=== PATIENT | male | born 1945 ===

== ENCOUNTER 2017-01-03 22:20 | Emergency (ER) | payer MEDICARE, BC ==
--- NOTE | 2017-01-03 22:24 | PHYS DOC ---
Adult General Chief Complaint Chief Complaint: DIZZY/LIGHT HEADED HPI HPI Patient is a 71 year old male who presents with left arm weakness and dizziness. He states this started at around 9:30 tonight when he stated from the mere he always son became very dizzy like the room was spinning around and around. He states he closes his eyes and makes it feel better. He also states his left arm is weaker than normal. He thinks it started at the same time but it was deathly after dinner tonight. He states he's had a history of 2 previous strokes and has weakness of his left arm from the previous stroke. He also feels heaviness behind his eyes extensively on his chest. He denies any chest pain or abdominal pain or shortness of breath. Denies fevers chills nausea vomiting. Review of Systems Review of Systems Constitutional: Denies fever or chills [] Eyes: Denies change in visual acuity, redness, or eye pain [] HENT: Denies nasal congestion or sore throat [] Respiratory: Denies cough or shortness of breath [] Cardiovascular: No additional information not addressed in HPI [] GI: Denies abdominal pain, nausea, vomiting, bloody stools or diarrhea [] : Denies dysuria or hematuria [] Musculoskeletal: Denies back pain or joint pain [] Integument: Denies rash or skin lesions [] Neurologic: Denies headache, positive for left arm left leg weakness Endocrine: Denies polyuria or polydipsia [] Current Medications Current Medications Current Medications Medications (Trade) Dose Ordered Sig/Delfina Start Time Stop Time Status Last Admin Dose Admin Alteplase, Recombinant 81 ml @ 81 mls/hr Q1H 01/04/17 00:30 01/04/17 01:30 DC 01/04/17 00:11 81 MLS/HR Info (Do NOT chart on this entry -- for MONITORING) 1 each PRN DAILY PRN 01/03/17 23:45 01/05/17 23:44 Iohexol (Omnipaque 350 Mg/ml) 75 ml 1X ONCE 01/04/17 00:00 01/04/17 00:01 DC 01/03/17 23:40 75 ML Labetalol HCl (Normodyne) 10 mg PRN Q10MIN PRN 01/03/17 23:45 01/04/17 00:24 DC Nicardipine HCl 50 mg/Sodium Chloride 270 ml @ 27 mls/hr CONT PRN PRN 01/03/17 23:45 Sodium Chloride 50 ml @ 0 mls/hr 1X ONCE 01/04/17 01:30 01/04/17 01:31 DC 01/04/17 01:07 0 MLS/HR Allergies Allergies Allergies Coded Allergies Type Severity Reaction Last Updated Verified Nsqzkty-Iil-Bjm Reductase Inhibitor Allergy Intermediate 01/04/17 Yes atenolol Allergy Intermediate 01/04/17 Yes clopidogrel Allergy Intermediate 01/04/17 Yes Physical Exam Physical Exam Constitutional: Well developed, well nourished, no acute distress, non-toxic appearance. [] HENT: Normocephalic, atraumatic, bilateral external ears normal, oropharynx moist, no oral exudates, nose normal. Eyes: no discharge. Refuses to open eyes[] Neck: Normal range of motion, no tenderness, supple, no stridor. [] Cardiovascular:Heart rate regular rhythm, no murmur [] Lungs & Thorax: Bilateral breath sounds clear to auscultation [] Abdomen: Bowel sounds normal, soft, no tenderness, no masses, no pulsatile masses. [] Skin: Warm, dry, no erythema, no rash. [] Back: No tenderness, no CVA tenderness. [] Extremities: No tenderness, no cyanosis, no clubbing, ROM intact, no edema. [] Neurologic: Alert and oriented X 3, 1 out of 5 strength in the left lower show many, 3 out of 5 in the left upper extremities, normal sensory function, Psychologic: Affect normal, judgement normal, mood normal. [] Current Patient Data Vital Signs Vital Signs Date Time Temp Pulse Resp B/P (MAP) Pulse Ox O2 Delivery O2 Flow Rate FiO2 01/04/17 01:55 74 18 117/59 (78) 99 Nasal Cannula 2.0 01/03/17 23:00 98.2 98.2 Lab Values Laboratory Tests Test 01/03/17 22:43 01/03/17 22:56 01/03/17 23:18 01/03/17 23:37 O2 Saturation 91 % (92-99) L Arterial Blood pH 7.40 (7.35-7.45) Arterial Blood pCO2 at Patient Temp 47 mmHg (35-46) H Arterial Blood pO2 at Patient Temp 64 mmHg (65-108) L Arterial Blood HCO3 29 mmol/L (21-28) H Arterial Blood Base Excess 3 mmol/L (-3-3) Oxyhemoglobin 90.4 % Methemoglobin 0.2 % (0.0-1.9) Carbon Monoxide, Quantitative 0.4 % (0.0-1.9) FiO2 21.0 POC Hemoglobin 11.2 g/dL (14-18) L POC Hematocrit 33 % (37-52) L POC Sodium 144 mmol/L (135-145) POC Potassium 3.6 mmol/L (3.5-5.0) POC Chloride 102 mmol/L (98-110) POC Total CO2 31 mmol/L (23-32) Anion Gap 16 mmol/L (6-14) H 4 (6-14) L POC Blood Urea Nitrogen 19 mg/dL (8-26) POC Creatinine 0.9 mg/dL (0.5-1.4) Glucose Level 99 mg/dL (70-99) 104 mg/dL (70-99) H POC Ionized Calcium (Laila) 1.24 mmol/L (1.13-1.32) White Blood Count 6.7 x10^3/uL (4.0-11.0) Red Blood Count 3.99 x10^6/uL (4.30-5.70) L Hemoglobin 10.3 g/dL (13.0-17.5) L Hematocrit 32.1 % (39.0-53.0) L Mean Corpuscular Volume 80 fL (79-100) Mean Corpuscular Hemoglobin 26 pg (25-35) Mean Corpuscular Hemoglobin Concent 32 g/dL (31-37) Red Cell Distribution Width 18.1 % (11.5-14.5) H Platelet Count 113 x10^3/uL (140-400) L Prothrombin Time 14.8 SEC (11.7-14.0) H Prothrombin Time INR 1.2 (0.8-1.1) H PTT 29 SEC (24-38) Sodium Level 145 mmol/L (136-145) Potassium Level 3.6 mmol/L (3.5-5.1) Chloride Level 107 mmol/L (98-107) Carbon Dioxide Level 34 mmol/L (21-32) H Blood Urea Nitrogen 19 mg/dL (8-26) Creatinine 0.8 mg/dL (0.7-1.3) Estimated GFR (Cockcroft-Gault) 95.6 Calcium Level 8.6 mg/dL (8.5-10.1) Ammonia 27 mcmol/L (11-34) Troponin I Quantitative 0.042 ng/mL (0.000-0.055) Glucose (Fingerstick) 99 mg/dL (70-99) Test 01/03/17 23:55 Stool Occult Blood Negative (NEG) Urine Opiates Screen Pos (NEG) Urine Methadone Screen Neg (NEG) Urine Barbiturates Neg (NEG) Urine Phencyclidine Screen Neg (NEG) Urine Amphetamine/Methamphetamine Neg (NEG) Urine Benzodiazepines Screen Neg (NEG) Urine Cocaine Screen Neg (NEG) Urine Cannabinoids Screen Pos (NEG) Urine Ethyl Alcohol Neg (NEG) Laboratory Tests 01/03/17 23:18 Laboratory Tests 01/03/17 22:56 01/03/17 23:18 EKG EKG EKG shows a rate of 81 bpm that appears to be sinus, no ST elevations appreciated, artifact in 1 and aVL, V2, right axis deviation noted, right bundle branch morphology noted, QTC 481 ms, as interpreted by me. Radiology/Procedures Radiology/Procedures [facility] [address] [place] [address] IMAGING REPORT Signed PATIENT: HILDA HAJI ACCOUNT: [id number] : 1945 LOCATION: ER AGE: 71 SEX: M EXAM STATUS: REG ER ORD. PHYSICIAN: NU ANTONIO MD REASON: code stroke PROCEDURE: CT HEAD WO CONTRAST CT head without contrast 01/03/2017 CLINICAL INDICATION: Stroke, left arm weakness. COMPARISON: None. TECHNIQUE: Multiple CT images of the head were obtained without contrast according to standard protocol. *One or more of the following individualized dose reduction techniques were utilized for this examination: 1. Automated exposure control. 2. Adjustment of the mA and/or kV according to patient size. 3. Use of iterative reconstruction technique. FINDINGS: Head: Mild prominence of the ventricles and subarachnoid spaces compatible with mild generalized cerebral atrophy. No acute intracranial hemorrhage or extra-axial fluid collection. The basal cisterns are patent. No midline shift or mass effect. Mendoza-white matter interfaces are maintained. Prior right lens surgery and left scleral banding. IMPRESSION: No acute intracranial hemorrhage or mass effect. These results were discussed with Dr. Fermin,of the emergency service, by telephone at 10:57 PM 01/03/[address] Nick Perez. Electronically signed by: Nick Perez MD (01/03/2017 10:58 PM) [facility] DICTATED and SIGNED BY: NICK PEREZ MD DATE: 01/03/172248 CC: IRMA MCGOWAN MD; NU ANTONIO MD; ADARSH ADAMS [facility] [address] [place] [address] IMAGING REPORT Signed PATIENT: HILDA HAJI ACCOUNT: [id number] : 1945 LOCATION: ER AGE: 71 SEX: M EXAM STATUS: REG ER ORD. PHYSICIAN: IRMA MCGOWAN MD REASON: code stroke PROCEDURE: CT ANGIOGRAPHY HEAD AND NECK PQRS Compliance Statement: One or more of the following individualized dose reduction techniques were utilized for this examination: 1. Automated exposure control 2. Adjustment of the mA and/or kV according to patient size 3. Use of iterative reconstruction technique CT ANGIOGRAPHY HEAD AND NECK Clinical Indication: code stroke patient, left arm weakness, hx stroke x 2, Comparison: CT head without contrast, earlier same day. Technique: Helical CT imaging from inferior to the aortic arch to the skull vertex is performed after 75 cc of Omnipaque [address] angiogram protocol. 3-D MIP reconstructions of the cervical carotid arteries and [place] of [place] are performed. PQRS Compliance Statement - Stenosis calculations for CT, MR and conventional angiography are based upon measurement of the distal ICA diameter in accordance with the NASCET methodology. Stenosis calculations for carotid ultrasound studies are derived from validated velocity criteria which are known to correlate with the NASCET methodology. Findings: Aortic arch branches are patent. The cervical carotid arteries are patent. There is moderate atherosclerotic calcification of the cavernous internal carotid arteries bilaterally. Axial images in the brain are obliqued. The anterior circulation is intact. No focal stenosis or abrupt truncation is identified. There is no evidence of intracranial aneurysm. 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 There is a prominent left posterior communicating artery. The left posterior cerebral artery is intact. The vertebral arteries in the neck are patent. The distal right vertebral artery occludes at the skull base. The left vertebral artery supplies the basilar artery. The basilar artery occludes. No abnormal enhancement in the brain parenchyma. There is atelectasis in the right upper lobe and respiratory motion artifact. Surgical clips of thyroidectomy. IMPRESSION: 1. 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 3. 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 Prominent left posterior communicating artery. Electronically signed by: Gerard Gibbons MD (01/03/2017 11:59 PM) [facility] DICTATED and SIGNED BY: GERARD GIBBONS MD DATE: 01/03/17 1198 CC: IRMA MCGOWAN MD; ADARSH ADAMS ~ Impressions: Left arm, left leg weakness Dizziness Course & Med Decision Making Course & Med Decision Making Pertinent Labs and Imaging studies reviewed. (See chart for details) Patient arrived with a difficult history, he first was sating he was dizzy but then on further exam and review of history he claims is having left arm left leg weakness. CT head did not show any acute abnormality's. I-STAT was performed and he went back for CT angiogram and then we're able to obtain blood and vitals. Spoke with Dr. Burroughs regarding his symptoms and went through contraindications with the patient and there is no contributions of her pushing TPA and Dr. Burroughs recommended giving TPA. CT angiogram then was resulted that showed vertebral artery and basilar artery occlusions, I spoke with Dr. Burroughs again regarding the results and she wanted the patient be evaluated by [facility] interventional neurology to see if there is any procedures available. Spoke with the transfer team who accepts the patient in transfer. Patient is being transferred in stable condition at this time to [facility]. NIH score was noted to be 11. There was a delay in starting TPA as the patient initially presented with dizziness and during a physical exam we noted his weakness in his left arm and leg. In the CT scanner he would not cooperate and allow us to obtain blood pressure secondary to his back pain and then his IV came apart, thus delaying his CT angiogram. I did call pharmacy while he was still in the CT scanner to tell them we will be initiating TPA therapy to speed up the process so as soon as we could get a weight then pharmacy to complete the mixing process. Critical care time 90 minutes of critical care time was used on this patient excluding procedures. Dragon Disclaimer Dragon Disclaimer This electronic medical record was generated, in whole or in part, using a voice recognition dictation system. Departure Departure Impression: Primary Impression: Left-sided weakness Disposition: 02 TRANSFER [facility] Condition: CRITICAL Referrals: ADARSH ADAMS (PCP) IRMA MCGOWAN MD Jan 03, 2017 22:24
--- NOTE | 2017-01-03 23:00 | RAD ---
CT head without contrast 01/03/2017 CLINICAL INDICATION: Stroke, left arm weakness. COMPARISON: None. TECHNIQUE: Multiple CT images of the head were obtained without contrast according to standard protocol. *One or more of the following individualized dose reduction techniques were utilized for this examination: 1. Automated exposure control. 2. Adjustment of the mA and/or kV according to patient size. 3. Use of iterative reconstruction technique. FINDINGS: Head: Mild prominence of the ventricles and subarachnoid spaces compatible with mild generalized cerebral atrophy. No acute intracranial hemorrhage or extra-axial fluid collection. The basal cisterns are patent. No midline shift or mass effect. Mendoza-white matter interfaces are maintained. Prior right lens surgery and left scleral banding. IMPRESSION: No acute intracranial hemorrhage or mass effect. These results were discussed with Dr. Fermin,of the emergency service, by telephone at 10:57 PM 01/03/[address] Damion Perez. Electronically signed by: Damion Perez MD (01/03/2017 10:58 PM) [facility]
[2017-01-03 23:02] LABS: POTASSIUM ISTAT 3.6 mmol/L (3.5-5.0)
[2017-01-03 23:27] LABS: HEMATOCRIT 32.1 % (39.0-53.0); HEMOGLOBIN 10.3 g/dL (13.0-17.5); RED BLOOD COUNT 3.99 x10^6/uL (4.30-5.70); RED CELL DISTRIBUTION WIDTH 18.1 % (11.5-14.5); WHITE BLOOD COUNT 6.7 x10^3/uL (4.0-11.0)
[2017-01-03 23:35] LABS: INR 1.2 (0.8-1.1); PROTHROMBIN TIME PATIENT 14.8 SEC (11.7-14.0)
[2017-01-03 23:38] LABS: CALCIUM 8.6 mg/dL (8.5-10.1); CREATININE 0.8 mg/dL (0.7-1.3); GFR 95.6; POTASSIUM 3.6 mmol/L (3.5-5.1)
[2017-01-03] MEDS ORDERED: CONTRAST GIVEN MC PRN (23:45)
[2017-01-03] MEDS ORDERED: LABETALOL 20 MG/4 ML DISP.SYRIN. IV PRN (23:45)
[2017-01-04] LABS: BASE EXCESS COOX 3 mmol/L (-3-3); CARBON MONOXIDE 0.4 % (0.0-1.9); HCO3 COOX 29 mmol/L (21-28); METHEMOGLOBIN 0.2 % (0.0-1.9); OXYHEMOGLOBIN 90.4 %; PCO2 COOX 47 mmHg (35-46); PO2 COOX 64 mmHg (65-108); SAT O2 COOX 91 % (92-99); TOTAL HEMOGLOBIN 11.2 g/dL
[2017-01-04] MEDS ORDERED: IOHEXOL 350 MG/ML 100 ML VIAL. IV ONE
--- NOTE | 2017-01-04 00:03 | RAD ---
PQRS Compliance Statement: One or more of the following individualized dose reduction techniques were utilized for this examination: 1. Automated exposure control 2. Adjustment of the mA and/or kV according to patient size 3. Use of iterative reconstruction technique CT ANGIOGRAPHY HEAD AND NECK Clinical Indication: code stroke patient, left arm weakness, hx stroke x 2, Comparison: CT head without contrast, earlier same day. Technique: Helical CT imaging from inferior to the aortic arch to the skull vertex is performed after 75 cc of Omnipaque [address] angiogram protocol. 3-D MIP reconstructions of the cervical carotid arteries and [place] of [place] are performed. PQRS Compliance Statement - Stenosis calculations for CT, MR and conventional angiography are based upon measurement of the distal ICA diameter in accordance with the NASCET methodology. Stenosis calculations for carotid ultrasound studies are derived from validated velocity criteria which are known to correlate with the NASCET methodology. Findings: Aortic arch branches are patent. The cervical carotid arteries are patent. There is moderate atherosclerotic calcification of the cavernous internal carotid arteries bilaterally. Axial images in the brain are obliqued. The anterior circulation is intact. No focal stenosis or abrupt truncation is identified. There is no evidence of intracranial aneurysm. 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 There is a prominent left posterior communicating artery. The left posterior cerebral artery is intact. The vertebral arteries in the neck are patent. The distal right vertebral artery occludes at the skull base. The left vertebral artery supplies the basilar artery. The basilar artery occludes. No abnormal enhancement in the brain parenchyma. There is atelectasis in the right upper lobe and respiratory motion artifact. Surgical clips of thyroidectomy. IMPRESSION: 1. 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 3. 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 Prominent left posterior communicating artery. Electronically signed by: Gerard Gibbons MD (01/03/2017 11:59 PM) [facility]
[2017-01-04 00:08] LABS: BARBITURATES NEG (NEG); BENZODIAZEPINES NEG (NEG); CANNABINOIDS POS (NEG); COCAINE NEG (NEG); METHADONE NEG (NEG); NEG OBC FOB NEG; OPIATES POS (NEG); PHENCYCLIDINE NEG (NEG); POS OBC FOB POS
[2017-01-04] MEDS ORDERED: ALTEPLASE 9 MG IV ONE (00:15)
[2017-01-04] MEDS ORDERED: ALTEPLASE 81 MG IV SCH (00:30)
[2017-01-04] MEDS ORDERED: IV NORMAL SALINE 50ML 50 ML IV ONE (01:30)
[2017-01-04 01:55] VITALS: BP 117/59
--- NOTE | 2017-01-04 06:39 | EKG ---
[facility] [address] [place] [address] Test Date: 2017-01-04 Test Time: 00:00:14 Pat Name: HILDA HAJI Department: Room: Gender: M Insurance Billing Specialist: : 1945 Requested By: IRMA MCGOWAN Order Number: [id number] Reading MD: Anup Jones Measurements Intervals [place] Rate: 81 P: 139 [place]: 242 QRS: -108 QRSD: 134 T: 126 QT: 414 QTc: 481 Interpretive Statements SR 1ST DEGREE AVB LIMB LEAD MISPLACEMENT Electronically Signed On 01-08-2017 9:44:07 CDT by Anup Jones
--- NOTE | 2017-01-04 07:38 | RAD ---
Exam performed: One view chest. Indication: code stroke Date of Service: 01/04/2017 12:34 AM Comparison: None available. Single AP upright portable view chest findings: Study somewhat limited due to positioning and poor inspiratory effort. Cardiomediastinal silhouette is within limits of normal. Pulmonary vascularity is mildly congested. Ectatic tortuous aorta. No acute infiltrates, effusion or pneumothorax is detected. Multiple surgical clips seen in the lower neck. The bony structures are normal. Impression: Mild central vascular congestion may be related to positioning and poor inspiratory effort. No acute abnormality seen.
== END 2017-01-04 02:00 | disposition short-term general hospital (02) ==
LOC: ER 22:20
DX: R53.1 Weakness (principal); Z86.73 Personal history of transient ischemic attack (TIA), and cerebral infarction without residual deficits; Z88.8 Allergy status to other drugs, medicaments and biological substances
CPT/HCPCS: 36415; 36600; 37195; 70450; 70496; 70498; 71010; 80047; 80048; 80307; 82140; 82274; 82805; 82962; 84484; 85027; 85610; 85730; 93005; 96360; 99291; 99292; J2997; Q9967; G0479